=== PATIENT | female | born 1970 | race Caucasian/White ===

== ENCOUNTER → 2024-01-28 09:06 | Outpatient (REF) | payer BC, SELFPAY ==
[2024-01-28 09:56] VITALS: BP 120/71; BP_SYST 71
[2024-01-28 10:22] LABS: Hematocrit 37.8 % (37.0-47.0); Hemoglobin 12.7 g/dL (12.0-16.0); Mean Corp Hgb Conc. 33.6 g/dL (33.0-37.0); Mean Corpuscular Hgb 32.4 pg (27.0-31.0); Mean Corpuscular Volume 96.4 fL (81.0-99.0); Mean Platelet Volume 9.2 fL (7.4-10.4); Platelet Count 280 10^3/uL (130-400); Red Blood Cell Count 3.92 10^6/uL (4.20-5.40); Red Cell Dist. Width 13.4 % (11.5-14.5); White Blood Cell Count 4.8 10^3/uL (4.8-10.8)
[2024-01-28] MEDS: NSS (PRESERVATIVE FREE) 0.25 ML IV (10:25)
[2024-01-28] MEDS: ATIVAN 0.5 MG IV (10:25)
[2024-01-28 10:39] LABS: INR 1.06; PT 13.8 Sec (11.4-14.6)
[2024-01-28 11:09] VITALS: BP 107/63; BP_SYST 67
[2024-01-28 11:20] VITALS: BP 110/65; BP_SYST 67
[2024-01-28 11:35] VITALS: BP 110/65
== END ==
LOC: RADI 09:06
PROVIDERS: ATTENDING PHYSICIAN Internal Medicine Hematology & Oncology; FAMILY PHYSICIAN Internal Medicine; OTHER PHYSICIAN Dermatology; REFERRING PHYSICIAN Internal Medicine Rheumatology
DX: D47.2 Monoclonal gammopathy (principal); Z01.812 Encounter for preprocedural laboratory examination; Z01.818 Encounter for other preprocedural examination
CPT/HCPCS: 88305; 88311; 88312; 36415; 38222; 77012; 85027; 85610; 88313; 88341; 88342; 99152

== ENCOUNTER → 2024-02-16 07:27 | Outpatient (REF) | payer BC, SELFPAY | LOC: MRI 07:27 | PROVIDERS: ATTENDING PHYSICIAN Dermatology; FAMILY PHYSICIAN Internal Medicine | DX: M35.4 Diffuse (eosinophilic) fasciitis (principal) | CPT/HCPCS: 73720; A9575 ==